=== PATIENT | male | born 1985 | race Caucasian/White ===

== ENCOUNTER 2021-05-13 11:19 | Emergency (ER) | payer OTHER, SELFPAY ==
[2021-05-13 11:20] VITALS: BP 139/69; PULSE 98; RESP 24; TEMP 36.4; O2SAT 94; BMI 57.1
--- NOTE | 2021-05-13 12:07 | CT_ITS ---
STUDY: CTA CHEST REASON FOR EXAM: Male, 36 years old. Covid 19 hemoptysis RADIATION DOSAGE (If Supplied By Facility): CTDIvol = ( 22.39 ) mGy, DLP = ( 1422.22 ) mGycm TECHNIQUE: The examination was performed with the intravenous administration of IV 100mL Isovue-370. Post-processing of the angiographic images was performed, with multiplanar reformation and 3D reconstruction. Individualized dose optimization techniques were used for this CT. COMPARISON: None. FINDINGS: Examination is nondiagnostic due to low attenuation in the pulmonary arteries and patient''s severely large body habitus resulting in severe image degradation by electronic noise. The scan was repeated with same results. Some diagnostic information is available. Main pulmonary artery is clear. Right and left pulmonary arteries are probably clear. Smaller pulmonary vessels cannot be assessed. Aorta is normal. There is multifocal Covid pneumonia. There is no pneumothorax, pulmonary edema or pleural effusions. There are expected reactive benign mediastinal lymph nodes. 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 CT/CTA Chest W/WO Contrast IMPRESSION: 1. Limited exam. Consider ultrasonography of the lower extremity venous system for further risk stratification. 2. Acute Covid pneumonia. 3. No pulmonary embolism in the main or proximal right/left pulmonary arteries. Electronically Signed: Shakira Perales MD at 13:53 EST Tel , Service support ,
--- NOTE | 2021-05-13 12:07 | EKG12_ITS ---
Test Reason : SOB Blood Pressure : / mmHG Vent. Rate : 097 BPM Atrial Rate : 097 BPM P-R Int : 158 ms QRS Dur : 100 ms QT Int : 374 ms P-R-T Axes : 037 -21 018 degrees QTc Int : 474 ms Sinus rhythm with Premature supraventricular complexes and Fusion complexes Otherwise normal ECG Confirmed by MICHAEL MANCIA, ANIYAH ([id number]), map editor DOYLE ARANA ([id number]) on 05/15/2021 10:12:08 AM Referred By: Confirmed By:ANIYAH RODRIGUEZ MD
--- NOTE | 2021-05-13 12:08 | EX.ED.DYSGE1 ---
HPI History of Present Illness Chief Complaint: Shortness of Breath Informant: patient Narrative Narrative: 36-year-old male presents the emergency room with hemoptysis and COVID-19. Patient states he first began to get sick on Saturday making this day 4. He tested positive at [facility] urgent care here in [place] yesterday. This morning he got the results and noticed that his cough was producing mucus that was blood-tinged. He notes some intermittent chest heaviness. He is treated for hypertension. Noted BMI 57.1. He has had one of his Covid vaccinations. PFSH PFS Medical History Depression Hypertension Home Medications albuterol sulfate [Ventolin HFA] 2 puff INHALATION Q4H PRN PRN #1 inhaler 05/13/21 [Rx Last Taken Unknown] dexamethasone 6 mg PO DAILY #7 tab 05/13/21 [Rx Last Taken Unknown] lisinopril 20 mg PO DAILY 05/13/21 [History Last Taken Unknown] sertraline 100 mg PO DAILY 05/13/21 [History Last Taken Unknown] Allergy/AdvReac Type Severity Reaction Status Date / Time No Known Allergies Allergy Verified 05/13/21 11:22 Social History (Updated 05/13/21 @ 12:[address] Caleb Johnson DO) Smoking Status: Never smoker substance use type: does not use ROS ROS ED Constitutional Constitutional ED: Reports chills and fever(s); Denies weight loss Eyes Eyes: Denies change in vision or diplopia ENT ENT ED: Reports rhinorrhea; Denies ear pain or sore throat Cardiovascular Cardiovascular: Reports chest pain; Denies orthopnea, palpitations or racing heartbeat Respiratory/Chest Respiratory/Chest: Reports cough; Denies dyspnea or orthopnea Gastrointestinal Gastrointestinal: Reports diarrhea; Denies abdominal pain, nausea or vomiting Genitourinary Genitourinary ED: Denies dysuria, hematuria or urinary frequency Musculoskeletal Musculoskeletal: Reports myalgias; Denies arthralgias Integumentary Denies abscess or rash Neurologic Neurologic: Reports headache(s); Denies weakness Psychiatric Psychiatric: Denies anxiety, depression, suicidal ideation or suicidal thoughts Endocrine Endocrinology: Denies polydipsia, polyphagia or polyuria Allergic/Immunologic Allergic/Immunologic ED: Denies mouth swelling, tongue swelling or urticaria EXAM Physical Exam Const Vital Signs: 05/13/21 11:20 05/13/21 11:50 05/13/21 12:27 Temperature 97.5 F L Temperature Source Temporal Pulse Rate 98 85 Respiratory Rate 24 H 17 Respiratory Effort Short of Breath Respiratory Depth Normal Respiratory Pattern Tachypnea Blood Pressure 139/69 H 118/77 Blood Pressure Mean 92 90 Pulse Ox 94 93 Oxygen Delivery Method Room Air Room Air 05/13/21 13:21 05/13/21 14:15 Temperature Temperature Source Pulse Rate 92 87 Respiratory Rate 18 17 Respiratory Effort Respiratory Depth Respiratory Pattern Blood Pressure 128/70 H 132/64 H Blood Pressure Mean 89 86 Pulse Ox 95 95 Oxygen Delivery Method Room Air Room Air Positive well nourished, well developed and obese General Appearance ED: well developed Nutritional Appearance: obese HEENT Reports normocephalic, head/scalp atraumatic, TM's clear and moist mucous membranes Negative for trauma Tympanic Membrane ED: Yes TM's clear Eyes PERRL and EOMs intact bilaterally Neck no lymphadenopathy, supple and no JVD Resp normal respiratory effort and clear to auscultation bilaterally Cardio regular rate, regular rhythm and no murmurs GI normal to inspection, nondistended, normoactive bowel sounds and non-tender Palpation: soft Back/Spine no CVA tenderness and normal ROM Extremity normal to inspection General Extremety ED: Negative for edema General Extremity: Negative for edema Neuro oriented x3 and CN's II-XII intact bilaterally Sensorium / Orientation: alert Motor Exam: strength 5/5 throughout Psych mental status grossly normal Mood & Affect: Negative for depressed or tearful Skin no rashes or lesions noted and no wounds MDM MDM MDM Narrative Medical decision making narrative: White count 8.1 platelet count is 215 hemoglobin 14. CMP negative troponin IX. CTA of the chest does not demonstrate any pulmonary embolism. It does show Covid pneumonitis. It is very concerning that the patient is this early on in his Covid course and is already demonstrating pulmonary symptoms. Place him on dexamethasone as well as albuterol MDI. And I will refer him to monoclonal antibody treatment. Lab Data Attestation: I reviewed the patient's lab results. Labs: Laboratory Results - last 24 hr 05/13/21 05/13/21 12:15 12:15 WBC 8.1 RBC 4.73 Hgb 14.0 Hct 41.5 MCV 87.7 MCH 29.6 MCHC 33.7 RDW Std Deviation 41.1 RDW Coeff of Wilfrido 12.8 Plt Count 215 MPV 9.1 Immature Gran % (Auto) 0.400 Neut % (Auto) 78.6 H Lymph % (Auto) 14.5 L Lyon % (Auto) 6.2 Eos % (Auto) 0.1 Baso % (Auto) 0.2 Absolute Neuts (auto) 6.4 Absolute Lymphs (auto) 1.18 Nucleated RBC % 0 Sodium 136 Potassium 3.4 L Chloride 103 Carbon Dioxide 26.0 Anion Gap 7 BUN 9 Creatinine 0.89 Estim Creat Clear Calc 123.52 Est GFR (MDRD) Af Amer 123 Est GFR (MDRD) Non-Af 101 BUN/Creatinine Ratio 10.1 Glucose 96 Calcium 8.4 L Total Bilirubin 0.70 AST 20 ALT 24 Alkaline Phosphatase 75 Troponin I High Sens 9 Total Protein 7.5 Albumin 3.0 L Globulin 4.5 H Albumin/Globulin Ratio 0.7 L Radiography Diagnostic Testing: Clinical Impression(s) from Imaging Studies Chest CTA 05/13/21 12:07 IMPRESSION: 1. Limited exam. Consider ultrasonography of the lower extremity venous system for further risk stratification. 2. Acute Covid pneumonia. 3. No pulmonary embolism in the main or proximal right/left pulmonary arteries. Electronically Signed: Shakira Perales MD at 13:53 EST Tel , Service support , EKG Initial EKG: Attestation: I personally reviewed and interpreted this EKG as follows: Comments: Sinus rhythm with a ventricular rate of 97 bpm. Discharge Plan Triage Chief Complaint: Shortness of Breath ED Provider: Caleb Johnson Dx/Rx/DC Orders Clinical Impression: COVID-19 Instructions: Coronavirus Disease 2019 (COVID-19): Caring for Yourself or Others Prescriptions: New dexamethasone 6 MG tablet 6 mg PO DAILY Qty: 7 RF: 0 albuterol sulfate [Ventolin HFA] 1 INHALER inhaler 2 puff inhalation Q4H PRN PRN (Reason: Wheezing) Qty: 1 RF: 0 No Action lisinopril 20 mg Tablet 20 mg PO DAILY RF: 0 sertraline 100 mg Tablet 100 mg PO DAILY RF: 0 Other Ambulatory Orders: COVID Outpatient Monoclonal Antibody Referral (Routine) Timeframe: 1 Day Facility: [facility] - Location: [facility] Ordered By: Dr. Caleb Johnson Primary Care Provider: aP Bledsoe Disposition Disposition: Home, Self Care
[2021-05-13 12:27] VITALS: BP 118/77; PULSE 85; RESP 17; O2SAT 93
[2021-05-13 12:32] LABS: Absolute Lymphocyte Count 1.18 X10^3/uL (0.83-4.51); Absolute Neutrophil Count 6.4 X10^3/uL (2.0-7.7); Basophil# 0.02 X10^3/uL; Basophil% 0.2 % (0-1); Eosinophil# 0.01 X10^3/uL; Eosinophils% 0.1 % (0-5); Hematocrit 41.5 % (40-54); Lymphocyte # 1.18 X10^3/ul (0.83-4.51); Lymphocyte % 14.5 % (19-41); Mean Corp Hgb Conc 33.7 g/dL (32-36); Mean Corpuscular Hgb 29.6 pg (27.0-32.0); Mean Corpuscular Volume 87.7 fL (80-94); Mean Platelet Vol. 9.1 fl (6.2-12.0); Monocyte% 6.2 % (0-10); NRBC Flagged by Analyzer 0 % (0-5); Neutrophil # 6.38 X10^3/uL (2.7-7.7); Neutrophil % 78.6 % (47-70); Platelet Count 215 K/mm3 (150-450); RBC Distribution Width CV 12.8 % (11.6-14.6); RBC Distribution Width SD 41.1 fl (35.1-43.9); Red Blood Count 4.73 M/mm3 (4.6-6.2); White Blood Count 8.1 K/mm3 (4.4-11.0)
[2021-05-13 12:59] LABS: ALB/GLOB Ratio 0.7 RATIO (0.9-2.4); AST(SGOT) 20 U/L (15-37); Alanine Aminotransfer ALT/SGPT 24 U/L (16-61); Alkaline Phosphatase 75 U/L (45-117); Anion Gap 7 (5-15); BUN 9 mg/dL (7-18); BUN/Creat Ratio 10.1 RATIO (10-20); Calcium,Total 8.4 mg/dL (8.5-10.1); Chloride 103 mmol/L (98-107); Creatinine, Serum 0.89 mg/dL (0.70-1.30); EST Glomerular Filtration Rate 101 mL/min (>60); Est Glom Filt Rate - Afr Amer 123 mL/min (>60); Estimated Creatinine Clearance 123.52 ml/min; Globulin 4.5 g/dL (2.2-4.2); Glucose 96 mg/dL (74-106); Potassium 3.4 mmol/L (3.5-5.1); Protein, Total 7.5 g/dL (6.4-8.2); Sodium Level 136 mmol/L (136-145); Troponin-I HS 9 pg/mL (3.0-78.0)
[2021-05-13 13:21] VITALS: BP 128/70; PULSE 92; RESP 18; O2SAT 95
[2021-05-13 14:15] VITALS: BP 132/64; PULSE 87; RESP 17; O2SAT 95
== END 2021-05-13 14:26 | disposition home or self-care (01) ==
PROVIDERS: Emergency Provider Emergency Medicine; PCP Family Medicine
DX: U07.1 COVID-19 (principal); I10 Essential (primary) hypertension; E66.9 Obesity, unspecified; Z68.43 Body mass index [BMI] 50.0-59.9, adult; Z79.899 Other long term (current) drug therapy
CPT/HCPCS: 71275; 80053; 84484; 85025; 93005; 99283; Q9967; A4216

== ENCOUNTER 2021-05-16 13:55 | Outpatient (CLI) | payer OTHER, SELFPAY ==
[2021-05-16 14:07] VITALS: BP 127/73; PULSE 81; RESP 20; TEMP 37.1; O2SAT 98; BMI 56.9
[2021-05-16] MEDS: 0.9% Saline Lock 10 ML Syringe IV (14:25)
[2021-05-16 14:58] VITALS: BP 101/67; PULSE 66; RESP 16; TEMP 37; O2SAT 96
[2021-05-16 15:49] VITALS: BP 121/70; PULSE 65; RESP 16; TEMP 37.1; O2SAT 97
== END 2021-05-16 16:02 | disposition home or self-care (01) ==
LOC: MS3OUT 13:55 → MS3 13:56
PROVIDERS: PCP Family Medicine; Referring Provider Nurse Practitioner Adult Health; Visit Provider Nurse Practitioner Adult Health
DX: Z23 Encounter for immunization (principal); U07.1 COVID-19
CPT/HCPCS: J7050; M0245; Q0245; A4216